=== PATIENT | female | born 1970 | race Caucasian/White ===

== ENCOUNTER → 2023-06-03 09:54 | Outpatient (REF) | payer OTHER, SELFPAY | LOC: HWRAD 09:54 | PROVIDERS: ATTENDING PHYSICIAN Chiropractor; FAMILY PHYSICIAN Family Medicine | DX: M99.01 Segmental and somatic dysfunction of cervical region (principal); M99.08 Segmental and somatic dysfunction of rib cage; M99.07 Segmental and somatic dysfunction of upper extremity | CPT/HCPCS: 72050; 72110; 73030 ==

== ENCOUNTER → 2023-07-23 18:27 | Outpatient (REF) | payer OTHER, SELFPAY | LOC: MRI 18:27 | PROVIDERS: ATTENDING PHYSICIAN Chiropractor | DX: M75.101 Unspecified rotator cuff tear or rupture of right shoulder, not specified as traumatic (principal) | CPT/HCPCS: 73221 ==

== ENCOUNTER 2025-03-05 15:27 | Emergency (ER) | payer OTHER, SELFPAY ==
[2025-03-05 15:30] VITALS: BP 111/69
[2025-03-05 16:12] LABS: Hematocrit 35.2 % (37.0-47.0); Hemoglobin 12.0 g/dL (12.0-16.0); Mean Corp Hgb Conc. 34.1 g/dL (33.0-37.0); Mean Corpuscular Volume 85.9 fL (81.0-99.0); Nucleated Red Blood Cells % 0 %; Platelet Count 367 10^3/uL (130-400); Red Cell Dist. Width 11.6 % (11.5-14.5)
[2025-03-05 16:18] LABS: ALT (SGPT) 16 U/L (0-35); AST (SGOT) 19 U/L (14-36); Albumin 4.8 g/dl (3.5-5.0); Alkaline Phosphatase 57 U/L (38-126); Blood Urea Nitrogen 9 mg/dl (7-17); Calcium 9.9 mg/dl (8.4-10.2); Carbon Dioxide 27 mmol/L (22-30); Chloride 101 mmol/L (98-107); Glucose 97 mg/dl (70-99); Potassium 4.6 mmol/L (3.5-5.1); Sodium 136 mmol/L (135-145); Total Protein 8.3 g/dl (6.3-8.2); eGFR > 60.00
[2025-03-05 16:19] LABS: COVID-19 Antigen Negative (Negative)
[2025-03-05] MEDS: TORADOL 15 MG IV (17:17)
[2025-03-05] MEDS: NSS 1000 IV (17:17)
--- NOTE | 2025-03-05 17:17 | ED.GENMED ---
History of Present Illness
General
Chief Complaint: Fever
Time Seen by Provider: 03/05/25 16:44
History of Present Illness
History of Present Illness:
54-year-old female with history of hyperlipidemia presenting to the emergency department for persistent fever. Patient reports about 2 weeks ago she came home from [facility]. While in [facility], she was feeling somewhat unwell, started to have
some chills. Upon return, continued to have fevers and chills. Also noted some congestion and headache. About a week ago symptoms had improved. However 4 days ago fevers returned. Denies focal abnormal symptoms. Denies cough. Denies dysuria,
however does feel like when she was in [facility], she was having some urinary symptoms. Denies significant abdominal pain. Denies chest pain or difficulty breathing. Does note headache. Denies focal weakness or sensory deficits. Denies
photophobia. Denies any known sick contacts. Went to her primary care last week, was negative for COVID and flu. Has been taking Advil and Tylenol intermittently for symptoms. Followed up with primary care doctor today who advised to come to the
hospital.
Phy Exam
Physical Exam
Physical Exam:
General: Well-appearing, no clinical signs of dehydration, nontoxic and in no acute distress
HEENT: protecting airway, mild tenderness on palpation of the frontal sinus
Neck: appears supple
CV: Normal heart rate, regular rhythm
Resp: No accessory muscle use, no increased work of breathing, lungs clear to auscultation bilaterally
Abd: Soft and non-distended, no tenderness to palpation, normal bowel sounds
Extremities: No deformities, no swelling
Neuro: alert, no focal neurologic deficit
: deferred
Rectal: deferred
Psych: Normal affect
Skin: Intact
Course
Orders/Labs/Results
Orders:
Orders
03/05/25 15:51
CBC/With Diff [Complete Blood Count/With Diff] Urgent
COVID-19 Antigen Urgent
Source: Nasal Swab
Comprehensive Metabolic Panel Urgent
Blood Culture Urgent
TAIWO Source: Blood/Venous
Specimen Description:
Influenza A+B Rapid Molecular Urgent
TAIWO Source: Nasal Swab
Specimen Description:
03/05/25 15:52
Lactic Acid Urgent
03/05/25 17:06
0.9% Sodium Chloride 1000 ml [Nss] 1,000 ml IV BOLUS
Ketorolac [Toradol] 15 mg IV NOW STA
CR Chest - 2 Views Urgent
Comment:
Reason For Exam: fever
03/05/25 17:16
Monotest Urgent
Urinalysis Reflex To Culture Urgent
Date Specimen was Collected: 03/05/25
Time Specimen was Collected: 17:11
Urine Microscopic Reflex Cult Urgent
Urine Culture Urgent
TAIWO Source: U
Specimen Description:
Date Specimen was Collected: 03/05/25
Time Specimen was Collected: 17:11
Abnormal Lab Results
03/05/25 03/05/25
15:51 17:16
RBC 4.10 L 10^6/uL
(4.20-5.40)
Hct 35.2 L %
(37.0-47.0)
Absolute Neuts (auto) 8.5 H 10^3/uL
(1.4-6.5)
Absolute Monos (auto) 0.7 H 10^3/uL
(0.1-0.6)
Neutrophils % 80.3 H %
(42.2-75.2)
Lymphocytes % 12.2 L %
(20.5-51.1)
Total Protein 8.3 H g/dl
(6.3-8.2)
Ur Occult Blood Reflex 1+ A
(Negative)
Leukocyte Esterase Rfl 2+ A
(Negative)
Urine WBC (Reflex) 30-40 A /HPF
(0-5)
Urine Bacteria (Reflex) Moderate A
(Negative)
Monoscreen Positive A
(Negative)
03/05/25 15:51
03/05/25 15:51
Vital Signs
Initial and Last Documented VS:
Initial Vital Signs
Temp Pulse Resp BP Pulse Ox
99.2 F 75 26 111/69 100
03/05/25 15:30 03/05/25 15:30 03/05/25 15:30 03/05/25 15:30 03/05/25 15:30
Last Documented Vital Signs
Temp Pulse Resp BP Pulse Ox
99.2 F 74 16 120/68 96
03/05/25 15:30 03/05/25 17:21 03/05/25 18:03 03/05/25 17:19 03/05/25 17:30
MDM/Problems Addressed
MDM/Problems Addressed:
54-year-old female without significant past medical history presenting for fevers. Vital signs on arrival are significant for low-grade temperature.
On exam, patient is resting comfortably, no acute distress. Patient is nontoxic. Unclear source of patient's fevers. Ultimately suspect possible viral component. She notes that 2 weeks ago she was having fevers that resolved, and now is having
fevers again. Suspect that she may have been fighting a different infection at that time given resolution and improvement of symptoms, and no return of symptoms. No specific symptoms or findings on exam to be concern for severe bacterial source of
infection. Lungs are clear to auscultation. Abdomen is soft and nontender. No meningismus or nuchal rigidity without concern for meningitis. Patient does note that she was having some urinary symptoms at onset of initial symptoms. Will check
urinalysis. Will also screen with chest x-ray imaging. Given duration of symptoms, will also send blood cultures. However labs sent prior to my assessment, no leukocytosis with lower suspicion for septic process.
18:50 -patient's chest x-ray without acute cardiopulmonary disease. Patient's Monospot test is positive which is consistent with patient's symptoms. Urine does show some elements of infection with leukocytes and WBCs. Notes that she has been
having some urinary symptoms so we will treat with course of cefepime. Otherwise advised supportive therapy regarding mono. Normal level enzymes. Advised against any exertional activity or sports, particularly contact sports for about 4 weeks
from time of infection. Advised continued fever control, rest, oral hydration. Patient verbalized understanding
*Pulse Oximetry
SaO2: 100
Oxygen Mode of Delivery: Room air
Patient hypoxic: no
*Critical Care Note
Total Time (30-74mins, 75-104mins- exclusive of procedures): Not Applicable
ED Attending Note
-
Portions of this chart may have been created with voice recognition software.� Occasional wrong word or��sound alike� substitutions may have occurred due to the inherent limitations of voice recognition software.
Discharge Plan
Departure
Referrals:
Anayeli Rodriguez DO [Family Provider, Family Practice]
Interventions
Interventions:
*General Assessment Last Done: 03/05/25 15:30
*Neglect/Abuse Screening Last Done: 03/05/25 15:30
*ED COVID-19 Vaccine History Last Done: 03/05/25 15:30
*ED Influenza Vaccine History Last Done: 03/05/25 15:30
[facility] Fall Risk Assessment Tool Last Done: 03/05/25 16:43
ED- Neurological Assessment Last Done: 03/05/25 16:49
ED-Skin Assessment Last Done: 03/05/25 16:49
Discharge Date and Time
Print Language: NEPALI
[2025-03-05 17:19] VITALS: BP 120/68
[2025-03-05 17:54] LABS: Urine Character Slightly Cloudy (Clear)
[2025-03-05 18:49] LABS: Urine Red Blood Cell 0-2 /HPF (0-2)
[2025-03-05 18:50] LABS: Urine White Cell 30-40 /HPF (0-5)
[2025-03-05] MEDS: KEFLEX 500 MG PO (19:00)
[2025-03-05 19:11] VITALS: BP 121/74
== END 2025-03-05 19:34 | disposition home or self-care (01) ==
LOC: EMR 15:27
PROVIDERS: Emergency Medicine; EMERGENCY PHYSICIAN Student in an Organized Health Care Education/Training Program; FAMILY PHYSICIAN Family Medicine
DX: B27.90 Infectious mononucleosis, unspecified without complication (principal); N39.0 Urinary tract infection, site not specified; Z11.52 Encounter for screening for COVID-19
CPT/HCPCS: 96374; 96361; 99284; 71046; 80053; 81003; 81015; 83605; 85025; 86308; 87040; 87077; 87086; 87186; 87502; 87811